=== PATIENT | female | born 1995 | race Caucasian/White ===

== ENCOUNTER 2023-08-19 11:46 | Emergency (ER) | payer OTHER, MEDICAID, SELFPAY ==
[2023-08-19 11:50] VITALS: BP 119/72; PULSE 90; RESP 18; TEMP 36.8; O2SAT 98; BMI 30.7
--- NOTE | 2023-08-19 12:11 | PC.NURSE ---
Patient came out of the room and stated that she could no longer wait. Patient has checked in 22 minutes ago. This RN asked if patient would wait and that the provider would be in her room next. Patient stated I have kids in the car and I have to go. Patient asked to be shown the exit. CASINO HOST escorted her back to the waiting room. Provider informed.
== END 2023-08-19 12:09 | disposition home or self-care (01) ==
CPT/HCPCS: 99281

== ENCOUNTER 2024-04-23 14:29 | Emergency (ER) | payer OTHER, MEDICAID, SELFPAY ==
[2024-04-23 15:03] VITALS: BP 138/72; PULSE 89; RESP 22; TEMP 36.6; O2SAT 98; BMI 35.2
--- NOTE | 2024-04-23 15:10 | DI.RAD.S_ITS ---
PROCEDURE: XR CHEST 2V INDICATIONS: Chest congestion, cough with sputum. TECHNIQUE: 2 views of the chest were acquired. COMPARISON: None. FINDINGS: Surgical changes and devices: None. Lungs and pleura: Lungs are clear. No pleural effusions or pneumothorax. Mediastinum: Mediastinal contours are normal. Heart size is normal. Bones and chest wall: No suspicious bony abnormalities. Soft tissues appear unremarkable. IMPRESSION: No acute cardiopulmonary abnormality is seen. Dictated by: Bret Leach M.D. on 04/23/2024 at 15:30 Approved by: Bret Leach M.D. on 04/23/2024 at 15:30
[2024-04-23 16:08] LABS: Adenovirus Not Detected (Not Detect); B. parapertussis Not Detected (Not Detecte); Bordetella pertussis Not Detected (Not Detect); Chlamydophila pneumoniae Not Detected (Not Detect); Coronavirus 229E Not Detected (Not Detect); Coronavirus HKU1 Not Detected (Not Detect); Coronavirus NL 63 Not Detected (Not Detect); Coronavirus OC43 Not Detected (Not Detect); Human Metapneumovirus Not Detected (Not Detect); Human Rhinovirus/Enterovirus Not Detected (Not Detect); Influenza A Not Detected (Not Detect); Influenza B Not Detected (Not Detect); Mycoplasma pneumoniae Not Detected (Not Detect); Parainfluenza Virus 1 Not Detected (Not Detect); Parainfluenza Virus 2 Not Detected (Not Detect); Parainfluenza Virus 3 Not Detected (Not Detect); Parainfluenza Virus 4 Not Detected (Not Detect); Respiratory Syncytial Virus Not Detected (Not Detect); SARS- CoV-2 Not Detected (Not Detecte)
[2024-04-23 16:24] VITALS: BP 134/70; PULSE 80; RESP 16; TEMP 37; O2SAT 96
--- NOTE | 2024-04-23 18:29 | ED.URI ---
HPI - URI/Sore Throat <Luis Sood PA-C - Last Filed: 05/01/24 19:31> General Chief Complaint: Upper Respiratory Symptoms Stated Complaint: chest and back px, cough Time Seen by Provider: 04/23/24 15:38 Source: patient Mode of arrival: Family Vehicle History of Present Illness HPI Narrative: 29-year-old female with no reported past medical history presents to the ED with 3 days of cough, chest congestion, and is losing her voice. No chest pain, shortness of breath, nausea, vomiting, fever, chills. Patient does have a distant history of asthma. Related Data Allergies Allergy/AdvReac Type Severity Reaction Status Date / Time No Known Drug Allergies Allergy Verified 10/14/23 10:44 Review of Systems <Luis Sood PA-C - Last Filed: 05/01/24 19:31> Constitutional Constitutional: Denies chills, Denies fatigue, Denies fever(s), Denies frequent falls, Denies lethargy and Denies weakness Eyes Eyes: Denies change in vision, Denies eye discharge, Denies irritation and Denies loss of vision ENT Ears, Nose, Mouth, and Throat: Denies change in voice, Denies dizziness, Denies neck pain, Denies sore throat and Denies throat swelling Comments: Losing voice Cardiovascular Cardiovascular: Denies chest pain, Denies irregular heart rhythm, Denies lightheadedness, Denies palpitations, Denies dyspnea, Denies dyspnea on exertion and Denies orthopnea Respiratory Respiratory: Reports chest congestion, Reports cough, Denies dyspnea, Denies dyspnea on exertion and Denies wheezing Gastrointestinal Gastrointestinal: Denies abdominal pain, Denies change in bowel habits, Denies diarrhea, Denies nausea and Denies vomiting Musculoskeletal Musculoskeletal: Denies neck pain and Denies numbness Integumentary/Breasts Skin/Breast: Denies pruritus, Denies erythema, Denies rash and Denies wounds Neurologic Neurologic: Denies behavioral changes, Denies confusion, Denies dizziness, Denies frequent falls, Denies loss of vision, Denies numbness and Denies weakness Psychiatric Psychiatric: Denies anxiety, Denies behavioral changes, Denies confusion, Denies depression, Denies homicidal ideation and Denies suicidal ideation Endocrine Endocrine: Denies fatigue, Denies flushing and Denies palpitations Hematologic/Lymphatic Hematologic/Lymphatic: Denies easy bruising Allergic/Immunologic Allergic/Immunologic: Denies urticaria, Denies throat swelling and Denies wheezing Patient History <Luis Sood PA-C - Last Filed: 05/01/24 19:31> Social History Smoking Status: Never smoker Smoking Status: Never smoker Substance Use Type: marijuana Exam <Luis Sood PA-C - Last Filed: 05/01/24 19:31> Narrative Exam Narrative: Const General:?cooperative, healthy appearing and comfortable [facility] Head:?normal to inspection Ears:?hearing grossly normal bilaterally Nose:?external nose normal Face and sinus:?normal facial exam and sinuses nontender Mouth:?oral mucosae normal Throat:?posterior oropharynx normal; patient is losing her voice, consistent with laryngitis Eyes General:?appearance normal, both eyes and all related structures Neck Neck:?normal visual inspection and no lymphadenopathy noted Resp Effort & Inspection:?normal respiratory effort Auscultation:?clear to auscultation bilaterally Cardio Rate:?regular rate Rhythm:?regular rhythm Neuro General:?patient alert, patient awake and patient oriented x3 Initial Vital Signs Initial Vital Signs: Vital Signs Temperature 97.9 F 04/23/24 15:03 Pulse Rate 89 04/23/24 15:03 Respiratory Rate 22 04/23/24 15:03 Blood Pressure 138/72 04/23/24 15:03 Pulse Oximetry 98 04/23/24 15:03 Oxygen Delivery Method Room Air 04/23/24 15:03 <Yuli Harris DO - Last Filed: 05/07/24 09:47> Initial Vital Signs Initial Vital Signs: Vital Signs Temperature 97.9 F 04/23/24 15:03 Pulse Rate 89 04/23/24 15:03 Respiratory Rate 22 04/23/24 15:03 Blood Pressure 138/72 04/23/24 15:03 Pulse Oximetry 98 04/23/24 15:03 Oxygen Delivery Method Room Air 04/23/24 15:03 Course <Luis Sood PA-C - Last Filed: 05/01/24 19:31> Orders Ordered: ED Orders 04/23/24 15:10 XR chest 2V Stat 04/23/24 15:13 Respiratory Panel (Film Array) Stat Vital Signs Vital signs: Vital Signs - 8 hr 04/23/24 15:03 04/23/24 16:24 Temperature 97.9 F 98.6 F Pulse Rate 89 80 Respiratory Rate 22 16 Blood Pressure 138/72 134/70 Pulse Oximetry 98 96 Oxygen Delivery Method Room Air Room Air <Yuli Harris DO - Last Filed: 05/07/24 09:47> Orders Ordered: ED Orders 04/23/24 15:10 XR chest 2V Stat 04/23/24 15:13 Respiratory Panel (Film Array) Stat Vital Signs Vital signs: Vital Signs - 8 hr 04/23/24 15:03 04/23/24 16:24 Temperature 97.9 F 98.6 F Pulse Rate 89 80 Respiratory Rate 22 16 Blood Pressure 138/72 134/70 Pulse Oximetry 98 96 Oxygen Delivery Method Room Air Room Air MDM - URI/Sore Throat <Luis Sood PA-C - Last Filed: 05/01/24 19:31> Lab Data Labs: Lab Results 04/23/24 Range/Units 15:13 Chlamy pneumoniae PCR Not detected (Not Detect) Adenovirus (PCR) Not detected (Not Detect) B. pertussis DNA (PCR) Not detected (Not Detect) B.parapertussis DNA PCR Not detected (Not Detecte) Coronavirus OC43 (PCR) Not detected (Not Detect) Coronavirus HKU1 (PCR) Not detected (Not Detect) Coronavirus 229E (PCR) Not detected (Not Detect) SARS-CoV-2 (PCR) Not detected (Not Detecte) Coronavirus NL63 (PCR) Not detected (Not Detect) Human Metapneumovir PCR Not detected (Not Detect) Influenza Type A (PCR) Not detected (Not Detect) Influenza Type B (PCR) Not detected (Not Detect) M. pneumoniae (PCR) Not detected (Not Detect) Parainfluenza 1 (PCR) Not detected (Not Detect) Parainfluenza 2 (PCR) Not detected (Not Detect) Parainfluenza 3 (PCR) Not detected (Not Detect) Parainfluenza 4 (PCR) Not detected (Not Detect) RSV (PCR) Not detected (Not Detect) Entero/Rhino (PCR) Not detected (Not Detect) MDM Narrative Medical decision making narrative: 29-year-old female with no reported past medical history presents to the ED with 3 days of cough, chest congestion, and is losing her voice. Concern for pneumonia versus laryngitis versus other URI versus other. Obtained respiratory panel which was negative. Obtain chest x-ray which showed no acute cardiopulmonary abnormalities. Patient's symptoms most consistent with viral laryngitis. Discussed supportive measures with patient. ED return precautions discussed with patient. Patient verbalized understanding. Medical records reviewed: Yes <Yuli Harris, DO - Last Filed: 05/07/24 09:47> Lab Data Labs: Lab Results 04/23/24 Range/Units 15:13 Chlamy pneumoniae PCR Not detected (Not Detect) Adenovirus (PCR) Not detected (Not Detect) B. pertussis DNA (PCR) Not detected (Not Detect) B.parapertussis DNA PCR Not detected (Not Detecte) Coronavirus OC43 (PCR) Not detected (Not Detect) Coronavirus HKU1 (PCR) Not detected (Not Detect) Coronavirus 229E (PCR) Not detected (Not Detect) SARS-CoV-2 (PCR) Not detected (Not Detecte) Coronavirus NL63 (PCR) Not detected (Not Detect) Human Metapneumovir PCR Not detected (Not Detect) Influenza Type A (PCR) Not detected (Not Detect) Influenza Type B (PCR) Not detected (Not Detect) M. pneumoniae (PCR) Not detected (Not Detect) Parainfluenza 1 (PCR) Not detected (Not Detect) Parainfluenza 2 (PCR) Not detected (Not Detect) Parainfluenza 3 (PCR) Not detected (Not Detect) Parainfluenza 4 (PCR) Not detected (Not Detect) RSV (PCR) Not detected (Not Detect) Entero/Rhino (PCR) Not detected (Not Detect) Discharge Plan Departure Patient Disposition: Home Clinical Impression: Laryngitis Instructions: DI for Laryngitis Activity Restrictions/Additional Instructions: You were evaluated in the ED today for losing her voice, cough. Your x-ray was normal. The respiratory panel was also negative. It appears that you have laryngitis, which is a viral respiratory infection that is causing you to lose your voice, as well as causing chest congestion. You may take [id number] cough and flu remedies such as TheraFlu. It might also be beneficial to rest your voice as much as possible and drink some hot teas. Please follow-up with your PCP as soon as possible. Return to the ED if you experience worsening symptoms, chest pain, shortness of breath. Referrals: Miscellaneous,Doctor, MD [Primary Care Provider] - Stand Alone Forms: Patient Portal/API/Survey ED Sign-out <Yuli Harris DO - Last Filed: 05/07/24 09:47> Cosign ED Attending Aniyah Attestation: I was immediately available in the department for consultation.
== END 2024-04-23 16:25 | disposition home or self-care (01) ==
PROVIDERS: Emergency Medicine; Emergency Provider Student in an Organized Health Care Education/Training Program
DX: J04.0 Acute laryngitis (principal); Z11.52 Encounter for screening for COVID-19; R09.89 Other specified symptoms and signs involving the circulatory and respiratory systems
CPT/HCPCS: 71046; 87633; 99281; 99283

== ENCOUNTER 2024-12-22 00:42 | Emergency (ER) | payer OTHER, MEDICAID, SELFPAY ==
[2024-12-22] VITALS (8 sets, daily range): BP systolic 112–157; BP diastolic 59–87; PULSE 72–85; RESP 15–24; TEMP 36.5; O2SAT 99–100; BMI 16.5
--- NOTE | 2024-12-22 00:51 | DI.RAD.S_ITS ---
PROCEDURE: XR SHOULDER LT MIN 2V INDICATIONS: fall with pain to left shoulder TECHNIQUE: 2 views of the shoulder were acquired. COMPARISON: None. FINDINGS: Bones: No fractures or dislocations. No suspicious bony lesions. Visualized ribs appear intact. Soft tissues: No suspicious soft tissue calcifications. IMPRESSION: No acute bony abnormality. If symptoms persist with conservative management, consider cross-sectional imaging such as CT or MRI. Approved by: Gabriela Zuniga M.D.,Ph.D. on 12/22/2024 at 2:58
--- NOTE | 2024-12-22 01:05 | ED_ITS ---
HPI - Extremity Injury (Upper) General Chief Complaint: Extremity Injury, Upper Stated Complaint: Fall, injured Lt Shoulder, possible fracture Time Seen by Provider: 12/22/24 00:54 Source: patient and family Mode of arrival: Ambulatory History of Present Illness HPI narrative: 29-year-old female slipped and fell from standing position, complains of left shoulder pain in area of the top of her shoulder and also along the trapezius on the left side. Hurts to move her left shoulder. No other injuries. Denies pain to head, face, neck, upper mid lower back. Denies pain to hips, legs, knees, forelegs, able to ambulate without lower extremity discomfort. Denies pain or injury to chest abdomen and pelvis. Related Data Previous Rx's ?Medication ?Instructions ?Recorded methocarbamol 500 mg tablet 500 mg PO TID 7 days #21 t abs 12/22/24 oxycodone-acetaminophen 5 mg-325 1 tab PO Q6H PRN pain #10 tabs 12/22/24 mg tablet Allergies Allergy/AdvReac Type Severity Reaction Status Date / Time No Known Drug Allergies Allergy Verified 12/22/24 00:52 Patient History Social History Smoking Status: Current every day smoker Smoking Status: Current every day smoker Exam Narrative Exam Narrative: GENERAL: Well-developed patient, in mild distress. HEAD: Atraumatic. Normocephalic. EYES: Pupils equal round and reactive. Extraocular motions intact. No scleral icterus. No injection or drainage. ENT: Nose without bleeding, purulent drainage. Throat without erythema, tonsillar hypertrophy or exudate. Airway patent. NECK: Trachea midline. Non tender CARDIOVASCULAR: Regular rate and rhythm without murmurs, gallops, or rubs. RESPIRATORY: Clear to auscultation. Breath sounds equal bilaterally. No wheezes, rales, or rhonchi. GASTROINTESTINAL: Abdomen soft, non-tender, nondistended. EXTREMITIES: No edema or joint tenderness. BACK: Nontender without deformity or crepitance. No flank tenderness. NEURO: AOx3. Motor functions grossly nonfocal. SKIN: No rash or erythema of visible areas Initial Vital Signs Initial Vital Signs: Vital Signs Temperature 97.7 F 12/22/24 00:52 Pulse Rate 84 12/22/24 00:52 Respiratory Rate 16 12/22/24 00:52 Blood Pressure 157/87 H 12/22/24 00:52 Pulse Oximetry 99 12/22/24 00:52 Oxygen Delivery Method Room Air 12/22/24 00:52 Course Orders Ordered: ED Orders 12/22/24 00:51 XR shoulder LT 2+ views Stat Discontinued Medications Cephalexin HCl (Cephalexin 250 Mg Capsule) 500 mg PO NOW ONE Stop: 12/22/24 01:56 Last Admin: 12/22/24 02:04 Dose: Not Given Hydromorphone HCl (Hydromorphone Hcl 0.5 Mg/0.5 Ml Syringe) 0.5 mg IV NOW ONE Stop: 12/22/24 01:02 Last Admin: 12/22/24 01:03 Dose: 0.5 mg Documented By: [facility] Hydromorphone HCl (Hydromorphone Hcl 0.5 Mg/0.5 Ml Syringe) 0.5 mg IV NOW ONE Stop: 12/22/24 02:28 Last Admin: 12/22/24 02:46 Dose: 0.5 mg Ketorolac Tromethamine (Ketorolac 30 Mg/Ml Vial) 15 mg IV NOW ONE Stop: 12/22/24 02:28 Last Admin: 12/22/24 02:46 Dose: 15 mg Methocarbamol (Methocarbamol 500 Mg Tablet) 500 mg PO NOW ONE Stop: 12/22/24 02:16 Last Admin: 12/22/24 02:20 Dose: 500 mg Oxycodone/Acetaminophen (Oxycodone/Apap 5/325 Prepack) 1 bottle MISC DIRECTED ONE Stop: 12/22/24 03:34 Last Admin: 12/22/24 03:48 Dose: 1 bottle Vital Signs Vital signs: Vital Signs - 8 hr 12/22/24 00:52 12/22/24 01:22 12/22/24 01:23 Temperature 97.7 F Pulse Rate 84 85 Respiratory Rate 16 19 Blood Pressure 157/87 H 115/66 Pulse Oximetry 99 99 Oxygen Delivery Method Room Air 12/22/24 01:23 12/22/24 01:30 12/22/24 01:30 Temperature Pulse Rate 75 82 Respiratory Rate 15 22 Blood Pressure 112/70 Pulse Oximetry 99 99 Oxygen Delivery Method 12/22/24 02:00 12/22/24 02:00 12/22/24 02:30 Temperature Pulse Rate 75 Respiratory Rate 24 Blood Pressure 119/59 L 131/78 Pulse Oximetry 99 Oxygen Delivery Method 12/22/24 02:30 12/22/24 03:00 12/22/24 03:30 Temperature Pulse Rate 76 82 72 Respiratory Rate 18 23 19 Blood Pressure Pulse Oximetry 100 Oxygen Delivery Method Room Air MDM - Extremity Injury (Upper) Imaging Data Extremity x-ray #1: Radiologist's Impression: [address] [id number] XRay Report Signed Patient: Ariella Neely MR#: [id number] : 1995 Acct:[id number] Age/Sex: 29 / F Date of Service: 12/22/24 Loc: ED Accession Number: [id number] Procedure: XR shoulder LT 2+ views Ordering Provider: Edward Kinsey MD PROCEDURE: XR SHOULDER LT MIN 2V INDICATIONS: fall with pain to left shoulder TECHNIQUE: 2 views of the shoulder were acquired. COMPARISON: None. FINDINGS: Bones: No fractures or dislocations. No suspicious bony lesions. Visualized ribs appear intact. Soft tissues: No suspicious soft tissue calcifications. IMPRESSION: No acute bony abnormality. If symptoms persist with conservative management, consider cross-sectional imaging such as CT or MRI. Approved by: Gabriela Zuniga M.D.,Ph.D. on 12/22/2024 at 2:58 MDM Narrative Medical decision making narrative: 29-year-old female with mechanical fall in left shoulder pain, hurts with movement. Tenderness along the AC joint without gross step-off, and along trapezius in anterior shoulder. No anterior fullness. X-rays ordered. Having significant pain. IV Dilaudid/Zofran. X-ray series left shoulder without fracture or dislocation, see radiology report. Placed in left shoulder sling. Home pack pain medication oxycodone/APAP dispensed, prescription sent to pharmacy for short course to use as needed for pain control. Oral dose methocarbamol, prescription also sent to her pharmacy, to help with associated muscle spasm. Follow up advised with local orthopedic surgery, on-call office contact information provided. Discharged home with family. 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 Discharge Plan Departure Patient Disposition: Home Clinical Impression: Contusion of left shoulder, Strain of left trapezius muscle, Sprain of left acromioclavicular joint, Left shoulder strain Instructions: DI for Shoulder Sprain, DI for Muscle Spasm Activity Restrictions/Additional Instructions: Fall with left shoulder injury. X-ray without obvious fracture. Tenderness to the left AC joint, as well as along the superior trapezius. Possible trapezius strain primary injury, or secondary spasm. Trial of muscle relaxant. Pain medication prescription given. Encouraged to take [id number] ibuprofen as needed. Placed in sling for comfort and protection. 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 Consider soft tissue injury, if persisting symptoms in follow up sometimes additional imaging such as MRI might be required. Consider follow up with Orthopedic surgery, contact information given for Orthopedic surgery on- call Dr. Edwards. Prescriptions: New methocarbamol 500 mg tablet 500 mg PO TID 7 Days Qty: 21 0RF oxycodone-acetaminophen 5-325 mg tablet 1 tab PO Q6H PRN (Reason: pain) Qty: 10 0RF Referrals: Miscellaneous,Doctor, MD [Primary Care Provider, Medical] Celia Edwards DO [Physician, Orthopedic Surgery] Stand Alone Forms: Patient Portal/API, Work Release Note
[2024-12-22] MEDS: KETOROLAC 30 MG/ML VIAL 15 MG IV (02:46)
[2024-12-22] MEDS: OXYCODONE/APAP 5/325 PREPACK 1 BOTTLE MISC (03:48)
== END 2024-12-22 04:07 | disposition home or self-care (01) ==
PROVIDERS: Emergency Provider Emergency Medicine
DX: S40.012A Contusion of left shoulder, initial encounter (principal); S46.812A Strain of other muscles, fascia and tendons at shoulder and upper arm level, left arm, initial encounter; S43.52XA Sprain of left acromioclavicular joint, initial encounter; S46.912A Strain of unspecified muscle, fascia and tendon at shoulder and upper arm level, left arm, initial encounter; W01.0XXA Fall on same level from slipping, tripping and stumbling without subsequent striking against object, initial encounter
CPT/HCPCS: 73030; 96374; 96375; 96376; 99284; J1171; J1885

== ENCOUNTER → 2025-01-01 11:25 | Outpatient (CLI) | payer OTHER, SELFPAY ==
--- NOTE | 2025-01-01 11:26 | DI.MRI.S_ITS ---
PROCEDURE: MR SHOULDER LT WO CON INDICATIONS: r/o pec tendon rupture, acute left shoulder pain + swelling TECHNIQUE: Noncontrast oblique coronal T2 fast spin echo with fat saturation, oblique sagittal T1 spin echo and T2 fast spin echo with fat saturation, axial T1 spin echo and T2 fast spin echo with fat saturation through the shoulder. COMPARISON: [facility], CR, XR SHOULDER LT 2+ VIEWS, 12/22/2024, 0:47. [facility], CR, XR SHOULDER LT 2+ VIEWS, 12/26/2024, 11:12. FINDINGS: Image quality: Images are mildly degraded by patient motion on multiple pulse sequences despite repeat sequences being acquired. Diagnostic information is obtained. Rotator cuff: Moderate supraspinatus and infraspinatus tendinosis without significant tearing. The teres minor tendon is intact. There is moderate subscapularis tendinosis. The rotator cuff musculature is normal in bulk. There is edema and possible trace fluid within the supraspinatus muscle that is suspicious for a grade 1-2 strain. Bones and bursae: No acute trabecular bone injury or fracture. No focal glenohumeral cartilage defect. Acromioclavicular joint is normally aligned. Trace subacromial/subdeltoid bursal fluid. No significant glenohumeral effusion. Capsule and soft tissues: No acute displaced labral tear. Proximal biceps long head tendon demonstrates moderate tendinosis. There is effacement of the normal fat signal in the rotator interval. The anterior band of the inferior glenohumeral ligament and the middle glenohumeral ligament appears thickened. The pectoralis major muscle is included at the margins of the field of view of this exam and demonstrates normal signal without edema or tearing at the myotendinous junction or distal insertion. IMPRESSION: 1. Pectoralis major tendon and myotendinous junction appear intact. 2. Edema within the supraspinatus muscle is suspicious for a grade 1-2 strain. 3. Moderate diffuse rotator cuff tendinosis without significant rotator cuff tendon tearing. 4. Moderate proximal biceps long head tendinosis. 5. No acute trabecular bone injury. No displaced labral tear. 6. Effacement of the rotator interval fat and thickening of the middle and inferior glenohumeral ligaments, suspicious for adhesive capsulitis. Approved by: Arnold Purcell M.D. on 01/01/2025 at 12:26
== END ==
PROVIDERS: Referring Provider Physician Assistant Surgical; Visit Provider Physician Assistant Surgical
DX: S29.011A Strain of muscle and tendon of front wall of thorax, initial encounter (principal); S46.912A Strain of unspecified muscle, fascia and tendon at shoulder and upper arm level, left arm, initial encounter; S40.012A Contusion of left shoulder, initial encounter; X58.XXXA Exposure to other specified factors, initial encounter
CPT/HCPCS: 73221

== ENCOUNTER → 2025-05-14 17:00 | Outpatient (CLI) | payer OTHER, SELFPAY ==
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
== END ==
LOC: MRI 17:01
PROVIDERS: Referring Provider Orthopaedic Surgery; Visit Provider Orthopaedic Surgery
DX: S46.812D Strain of other muscles, fascia and tendons at shoulder and upper arm level, left arm, subsequent encounter (principal); S46.012D Strain of muscle(s) and tendon(s) of the rotator cuff of left shoulder, subsequent encounter; M25.412 Effusion, left shoulder; V89.2XXD Person injured in unspecified motor-vehicle accident, traffic, subsequent encounter
CPT/HCPCS: 73221